=== PATIENT | female | born 1980 | race Caucasian/White ===

== ENCOUNTER → 2016-11-17 | Outpatient (CLI) | payer BC | END | disposition home or self-care (01) | LOC: LAB.O 08:00 | PROVIDERS: ATTEND Internal Medicine Cardiovascular Disease | DX: R00.1 Bradycardia, unspecified (principal) ==

== ENCOUNTER → 2017-01-24 | Outpatient (CLI) | payer BC | LOC: GMAM 16:50 | PROVIDERS: ATTEND Family Medicine | DX: M25.50 Pain in unspecified joint (principal); R94.6 Abnormal results of thyroid function studies; E55.9 Vitamin D deficiency, unspecified ==

== ENCOUNTER → 2017-01-27 | Outpatient (CLI) | payer BC ==
--- NOTE | 2017-01-29 02:11 | US ---
EXAM DESCRIPTION: Thyroid CLINICAL HISTORY: 36 years Female, ABNORMAL THYROID FINDINGS COMPARISON: None. TECHNIQUE: Ultrasound images of the thyroid available for evaluation. FINDINGS: The right thyroid measures 4.3 x 1.6 x 1.4 cm. The left thyroid measures 3.7 x 1.4 x 1.2 cm. The thyroid isthmus measures 0.3 cm. In the right thyroid there is a 7 mm probably cystic nodule. There is a second 4 mm probably cystic nodule in the mid right thyroid. In the left thyroid there is a 3 mm hypoechoic nodule. No microcalcifications are concerning characteristics. IMPRESSION: 1. Multinodular thyroid, the largest is a cystic benign-appearing nodule in the right thyroid measuring 7 mm. These nodules do not meet criteria for biopsy. Electronically signed by: Heath Corral 01/29/2017 2:10 AM [facility]
== END | disposition home or self-care (01) ==
LOC: US 13:14
PROVIDERS: ATTEND Family Medicine
DX: R94.6 Abnormal results of thyroid function studies (principal); R70.0 Elevated erythrocyte sedimentation rate; E78.2 Mixed hyperlipidemia; R00.1 Bradycardia, unspecified; M25.50 Pain in unspecified joint; E55.9 Vitamin D deficiency, unspecified

== ENCOUNTER → 2018-07-03 | Outpatient (CLI) | payer BC | LOC: GMAE 14:42 | PROVIDERS: ATTEND Family Medicine | DX: R53.82 Chronic fatigue, unspecified (principal); M79.10 Myalgia, unspecified site ==

== ENCOUNTER → 2018-11-01 | Outpatient (CLI) | payer BC ==
--- NOTE | 2018-11-01 18:02 | US ---
US THYROID CLINICAL STATEMENT: NODULE. COMPARISON: None TECHNIQUE: Transcutaneous scanning, grayscale and Doppler modes. FINDINGS: Size right thyroid lobe: 4.3 x 1.5 x 1.2 cm Size left thyroid lobe: 2.6 x 1.2 x 1.2 cm Size isthmus: 0.33 cm Estimated total number of nodules greater than or equal to 1 cm: None. Nodule 1: Size: 0.8 x 0.5 x 0.5 cm Location: Left Mid Composition: solid or almost completely solid: 2 points Echogenicity: hypoechoic: 2 points Shape: wider than tall: 0 points. Isoechoic center. Margins: smooth: 0 points Echogenic foci: none: 0 points ACR Total Points: 4; ACR TI-RADS risk category: TR4 - moderately suspicious nodule. Nodule 2: Size: 0.6 and 0.4 x 0.4 cm Location: Right Mid Composition: spongiform: 0 points Echogenicity: very hypoechoic: 3 points Shape: wider than tall: 0 points Margins: smooth: 0 points Echogenic foci: none: 0 points ACR Total Points: 3; ACR TI-RADS risk category: TR3 - mildly suspicious nodule. No dominant solid mass or distinct cyst. No parenchymal edema or large calcifications. The soft tissue around the thyroid gland is unremarkable. IMPRESSION: 1. Nodule 1: ACR TI-RADS 2017 Category TR4. Recommend: No further follow-up.. Recommendations based upon [employer] recommendations and ACR TI-RADS 2017 guidelines. Please see below*. 2. Nodule 2: ACR TI-RADS 2017 Category TR3. Recommend: No further follow-up. 3. Soft tissue around the thyroid gland is unremarkable. *ACR TI-RADS 2017 Recommendations: TR1: No FNA or follow up TR2: No FNA or follow up TR3: FNA if >/= 2.5 cm, follow up if 1.5 - 2.4 cm in 1, 3, and 5 years TR4: FNA if >/= 1.5 cm, follow up if 1.0 - 1.4 cm in 1, 2, 3, and 5 years TR5: FNA if >/= 1.0 cm, follow up if 0.5 - 0.9 cm every year for 5 years ACR TI-RADS recommends that no more than two nodules with the highest ACR TI-RADS total point should be biopsied and no more than four nodules should be followed. These recommendations do not apply to patients with increased risk for thyroid cancer or patients with symptomatic thyroid disease. Electronically signed by: Zhao Tan MD 11/01/2018 6:01 PM CDT
== END ==
LOC: US 09:40
PROVIDERS: ATTEND Family Medicine
DX: E04.1 Nontoxic single thyroid nodule (principal); K90.0 Celiac disease; R53.82 Chronic fatigue, unspecified; M79.10 Myalgia, unspecified site; E55.9 Vitamin D deficiency, unspecified

== ENCOUNTER → 2019-02-25 | Outpatient (CLI) | payer BC ==
--- NOTE | 2019-02-26 09:34 | US ---
EXAM DESCRIPTION: Abdomen,Complete: Ultrasound. CLINICAL HISTORY: 38 years FemaleUPPER ABDOMINAL PAIN COMPARISON: None Available. TECHNIQUE: Transabdominal scanning: grayscale and Doppler modes. FINDINGS: Gallbladder: Normal size and echogenicity with no intraluminal stones or sludge. No wall thickening or fluid. Nontender with transducer pressure. Common bile duct: 2.8 mm normal caliber. Liver: Long axis right lobe 14.0 cm. Normal echogenicity of the liver. Smooth capsule with no ascites. Physiologic vascularity. Dilated. Pancreas: Normal echogenicity and size. Duct not seen.. Abdominal aorta: Normal caliber from the proximal segment to the mid aorta. Bifurcation was obscured by intestinal gas. IVC: visualized; normal caliber. Spleen normal echogenicity; long axis measurement is 11.3 cm. Right kidney: 9.7 cm long axis. Normal cortical thickness and echogenicity. No echogenic stones or hydronephrosis. Left kidney: 9.8 cm long axis. Normal cortical thickness and echogenicity. No echogenic stones or hydronephrosis. IMPRESSION: Normal ultrasound of the abdomen. No abnormal findings to explain clinical history. Electronically signed by: Zhao Tan MD 02/26/2019 9:33 AM [employer]
== END ==
LOC: LAB.O 11:12
PROVIDERS: ATTEND Nurse Practitioner Family
DX: R10.10 Upper abdominal pain, unspecified (principal)